=== PATIENT | female | born 1975 | race Caucasian/White ===

== ENCOUNTER 2023-08-03 09:09 | Observation (INO) ==
--- NOTE | 2023-08-03 09:22 | DR.GENAD ---
HPI Time Seen Time Seen by Provider: 08/03/23 09:21 PCP Primary Care Physician: TIA De La Cruz Complaint/Symptoms Chief Complaint Doctors Comments: 47-year-old female presents for evaluation. Started illness yesterday AM. Having frequent nausea, vomiting and diarrhea. Developed cramping of her legs last p.m. denies any known fevers or chills. Is feeling weak in general. Somewhat lightheaded with standing. Nothing set off the abdomen she knows about. Has been running low-grade temperature has not been around any other known ill individuals. Having some abdominal cramping. Chief Complaint:: Pt c/o sudden onset of nausea, vomiting and diarrhea that started yesterday morning and has continued throughout the night last night and this morning. Pt denies any fever. Pt c/o constant cramping pain in bilateral lower extremities. COVID-19 Coronavirus risk:travel/contact w/high risk person: No Has patient experienced Coronavirus symptoms: No Nurses notes reviewed Nurses Notes Review: Yes Source History Provided: Patient Mode of Arrival Mode of Arrival: Ambulatory Timing Onset of Chief Complaint: 08/02/23 PMH PMH Past Medical History: Yes Past Medical History: Dyslipidemia and GERD Past Medical History Comment: MVP Past Surgical History: Yes Surgical History: Abdominal Surgery and Hysterectomy Past Surgical History Comment: all of large intestines removed and most of small intestines removed Family History History of Family Medical Conditions: Yes Family Medical History: Cancer Social History Does patient currently use any type of tobacco product: Yes Have you used tobacco products in the last 12 months: Yes Type of Tobacco Use: Cigarettes Does any household member use tobacco: No Alcohol Use: None Do you use any recreational Drugs:: No Lives With: Family Lives Where: Home Travel Risk Coronavirus risk:travel/contact w/high risk person: No Has patient experienced Coronavirus symptoms: No Infectious screening In the last 2 months have you had wt loss of >10#?: NO Have you had fever, night sweats or hemotysis?: No Have you traveled outside the country in the last 6 months?: No Isolation: Standard ROS Review of Systems Constitutional: Weakness Eyes: No Symptoms Reported ENTM: No Symptoms Reported Respiratoy: No Symptoms Reported Cardiovascular: No Symptoms Reported Gastrointestinal/Abdominal: See HPI Genitourinary: No Symptoms Reported Neurological: Weakness Musculoskeletal: Leg Integumentary: No Symptoms Reported All Other Systems: Reviewed and Negative PE Vital Signs Vitals: Vital Signs Temperature 99.0 F Pulse Rate 85 Pulse Rate 88 Pulse Rate 91 Pulse Rate 92 Pulse Rate 93 Pulse Rate 92 Pulse Rate 104 Pulse Rate 112 Pulse Rate 96 Pulse Rate 97 Pulse Rate 101 Pulse Rate 140 Respiratory Rate 20 Respiratory Rate 23 Respiratory Rate 19 Respiratory Rate 20 Respiratory Rate 18 Respiratory Rate 20 Respiratory Rate 22 Blood Pressure 117/74 Blood Pressure 109/74 Blood Pressure 128/73 Blood Pressure 107/65 Blood Pressure 109/72 Blood Pressure 93/71 O2 Sat by Pulse Oximetry 100 O2 Sat by Pulse Oximetry 100 O2 Sat by Pulse Oximetry 100 O2 Sat by Pulse Oximetry 100 O2 Sat by Pulse Oximetry 100 O2 Sat by Pulse Oximetry 100 O2 Sat by Pulse Oximetry 100 O2 Sat by Pulse Oximetry 100 O2 Sat by Pulse Oximetry 99 O2 Sat by Pulse Oximetry 100 O2 Sat by Pulse Oximetry 99 O2 Sat by Pulse Oximetry 98 General General Appearance: Alert and In No Apparent Distress Eyes Eye exam: PERRL and EOMI ENT ENT Exam: Mucous Membranes Dry Neck Neck Exam: Normal Inspection Respiratory Respiratory Exam: Normal Lung Sounds Bilat; negative Accessory Muscle Use or Respiratory Distress Cardiovascular Cardiovascular Exam: Regular Rate, Normal Rhythm, Tachycardia and Normal Heart Sounds Abdominal Exam Abdominal Exam: Normal Bowel Sounds and Soft; negative Tenderness, Guarding or Rebound Extremities Extremities Exam: Normal Inspection Neurologic Neurological Exam: Alert, Oriented X3 and CN II-XII Intact; negative Motor Sensory Deficit Skin Skin Exam: Warm and Dry COURSE Treatment Treatment: 47 y/o female with N/V/abd pain. W/u initiated. Patient given IV fluids, IV analgesia. Labs show the patient's potassium be low at 2.8. She has elevated BUN and creatinine, consistent with acute nontraumatic renal injury CT abdomen pelvis obtained, multiple air-fluid levels with distention of the small bowel concerning for partial small bowel obstruction versus enteritis. Recommended admission. Discussed with Dr. Horton, on-call. Accepts the admission. Recommends NG tube. Consult with surgery, Dr. Sanders. NG tube inserted to low intermittent suction. Will be admitted to the floor. ROR Labs Reviewed Laboratory Results Reviewed?: Yes 08/03/23 09:30 08/03/23 09:30 Laboratory: WBC 10.5 X10^3/uL (3.6-10.0) H 08/03/23 09:30 RBC 4.69 X10^6/uL (3.5-5.4) 08/03/23 09:30 Hgb 15.2 g/dL (12.0-16.0) 08/03/23 09:30 Hct 44.3 % (36.0-47.0) 08/03/23 09:30 MCV 94.4 fL (80.0-100.0) 08/03/23 09:30 MCH 32.4 pg (27.0-34.0) 08/03/23 09: MCHC 34.3 g/dL (33.0-35.0) 08/03/23 09:30 RDW 13.5 % (11.6-16.5) 08/03/23 09:30 Plt Count 536 X10^3/uL (150.0-450.0) H 08/03/23 09:30 MPV 7.5 fL (7.4-11.0) 08/03/23 09:30 Neut % (Auto) 71.2 % (42.0-75.0) 08/03/23 09:30 Lymph % (Auto) 19.1 % (21.0-51.0) L 08/03/23 09:30 Mcdonald % (Auto) 7.5 % (0.0-13.0) 08/03/23 09:30 Eos % (Auto) 2.0 % (0.9-2.9) 08/03/23 09:30 Baso % (Auto) 0.2 % (0.2-1.0) 08/03/23 09:30 Neut # (Auto) 7.5 x10^3/uL (2.2-4.8) H 08/03/23 09:30 Lymph # (Auto) 2.0 X10^3/uL (1.3-2.9) 08/03/23 09:30 Mcdonald # (Auto) 0.8 x10^3/uL (0.3-0.8) 08/03/23 09:30 Eos # (Auto) 0.2 x10^3/uL (0.0-0.2) 08/03/23 09:30 Baso # (Auto) 0.0 X10^3/uL (0.0-0.1) 08/03/23 09:30 Absolute Nucleated RBC 0.1 /100WBC 08/03/23 09:30 Sodium 138 mmol/L (136-145) 08/03/23 09:30 Corrected Sodium 138 mmol/L (136-145) 08/03/23 09:30 Potassium 2.8 mmol/L (3.5-5.1) L* 08/03/23 09:30 Chloride 100 mmol/L (98-107) 08/03/23 09:30 Carbon Dioxide 22.2 mmol/L (21-32) 08/03/23 09:30 BUN 26 mg/dL (7-18) H 08/03/23 09:30 Creatinine 2.74 mg/dL (0.55-1.02) H 08/03/23 09:30 Est GFR (MDRD) Af Amer 24 (>60) L 08/03/23 09:30 Est GFR (MDRD) Non-Af 20 (>60) L 08/03/23 09:30 Glucose 119 mg/dL (65-99) H 08/03/23 09:30 Lactic Acid 0.9 mmol/L (0.4-2.0) 08/03/23 09:40 Calcium 9.9 mg/dL (8.5-10.1) 08/03/23 09:30 Corrected Calcium TNP 08/03/23 09:30 Total Bilirubin 0.40 mg/dL (0.2-1.0) 08/03/23 09:30 AST 58 Units/L (15-37) H 08/03/23 09:30 ALT 112 Units/L (12-78) H 08/03/23 09:30 Alkaline Phosphatase 44 Units/L (46-116) L 08/03/23 09:30 Total Protein 9.2 g/dL (6.4-8.2) H 08/03/23 09:30 Albumin 5.1 g/dL (3.4-5.0) H 08/03/23 09:30 Globulin 4.1 g/dL (2.5-4.5) 08/03/23 09:30 Albumin/Globulin Ratio 1.2 Ratio (1.1-2.1) 08/03/23 09:30 Lipase 21 Units/L (16-77) 08/03/23 09:30 Specimen Type Clean catch urine 08/03/23 10:55 Urine Color Dark yellow (YELLOW) 08/03/23 10:55 Urine Appearance Slightly hazy (CLEAR) 08/03/23 10:55 Urine pH 5.0 (5.0 - 8.0) 08/03/23 10:55 Ur Specific [place] 1.030 (1.000-1.030) 08/03/23 10:55 Urine Protein 3+ (NEGATIVE) 08/03/23 10:55 Urine Glucose (UA) Negative (NEGATIVE) 08/03/23 10:55 Urine Ketones 1+ (NEGATIVE) 08/03/23 10:55 Urine Blood 1+ (NEGATIVE) 08/03/23 10:55 Urine Nitrite Negative (NEGATIVE) 08/03/23 10:55 Urine Bilirubin 2+ (NEGATIVE) 08/03/23 10:55 Urine Urobilinogen 1+ (NORMAL) 08/03/23 10:55 Ur Leukocyte Esterase 1+ (NEGATIVE) 08/03/23 10:55 Urine RBC 0-2 /HPF (0-3) 08/03/23 10:55 Urine WBC 3-5 /HPF (0-5) 08/03/23 10:55 Ur Squamous Epith Cells Many /HPF (NEGATIVE) 08/03/23 10:55 Amorphous Sediment 3+ /HPF (NEGATIVE) 08/03/23 10:55 Urine Bacteria Trace /HPF (NEGATIVE) 08/03/23 10:55 Ur Culture Indicated? No/not indicated 08/03/23 10:55 XRAY XRAY Interpreted by: Radiologist X-ray Results: EXAM: ABDOMEN/PELVIS W/O CON HISTORY: abd pain, vomiting; COMPARISON: None. TECHNIQUE: Multiple axial images of the abdomen and pelvis were obtained from the lung bases to the pubic symphysis without the administration of IV contrast. Dose reduction techniques including Automated Exposure Control (AEC) and adjustment of mA and kV were utilized. FINDINGS: Limitations: Lack of IV contrast limits evaluation. Incomplete sagittal sequence. Minor subsegmental atelectasis in the right middle lobe of the lung. Heart is normal in size. Small amount of pericardial fluid. The liver, gallbladder, spleen, pancreas, adrenal glands, and kidneys have a benign noncontrast appearance. The urinary bladder appears benign. Status post hysterectomy. D iarrheal state of the colon with air stool level in the sigmoid colon image 75 series 3. Status post partial colectomy with right lower quadrant ileocolic anastomosis image 61 series 3. There is cluster of borderline to mildly enlarged lymph nodes in the right lower quadrant adjacent to the anastomosis. For example, on image 56 series 3 a lymph node measures 1 cm short axis. There are a few borderline to mildly dilated loops of small bowel in the left hemiabdomen. For example on image 62 series 3 a loop of small bowel measures about 3 cm in thickness. The appendix is not visualized and likely surgically absent. Moderately atherosclerotic normal caliber abdominal aorta. No free air or ascites. No acute osseous abnormality. IMPRESSION: Borderline to mildly dilated loops of small bowel in the left hemiabdomen may represent enteritis or low-grade obstruction. Partial colectomy. Diarrheal state of the remaining colon. Cluster of borderline to mildly enlarged lymph nodes in the right lower quadrant adjacent in the anastomosis. Differential includes reactive adenopathy, metas tasis, or primary lymphoproliferative disease. Recommend 3 month follow-up to document stability or resolution in the absence of known malignancy for which PET-CT or biopsy may be warranted. Incomplete sagittal sequence. An addendum can be made if repeat sequence is submitted. THIS IS AN ELECTRONICALLY VERIFIED FINAL REPORT 08/03/2023 11:03 AM - Electronically signed by Kwaku Woodard MD Opioid Opioid Risk Tool Age ([place] box if 16-45): Yes History of Preadolescent Sexual Abuse: No Total: 1 Total Score Risk Category: Low Risk Copyright: Gunnar COLBY predicting aberrant behaviors Discharge Plan Diagnosis Discharge Problem: Partial small bowel obstruction, Acute kidney injury (nontraumatic) Discharge Plan Patient Disposition: ADMITTED INPATIENT Condition: Stable Orders to Discharge Patient Discharge Orders: Transfer (Routine); Ordered 08/03/23 Ordered By: Riki Green
[2023-08-03] MEDS ORDERED: NS 1,000 ML IV 1,000 ML IV ONE ×2 (09:31→10:57)
[2023-08-03] MEDS ORDERED: ZOFRAN INJ 4 MG VIAL IVP ONE ×2 (09:32→12:05)
[2023-08-03] MEDS ORDERED: TORADOL 30 MG VIAL IVP ONE (09:32)
[2023-08-03] MEDS ORDERED: ZOFRAN INJ 4 MG VIAL ONE ×2 (09:34→12:08)
[2023-08-03] MEDS ORDERED: TORADOL 30 MG VIAL ONE (09:34)
[2023-08-03] MEDS ORDERED: NS 1,000 ML IV 1,000 ML ONE ×2 (09:35→10:58)
[2023-08-03 10:12] LABS: BASOPHILS % (AUTO) 0.2 % (0.2-1.0); EOSINOPHILS # (AUTO) 0.2 x10^3/uL (0.0-0.2); HEMATOCRIT 44.3 % (36.0-47.0); HEMOGLOBIN 15.2 g/dL (12.0-16.0); LYMPHOCYTES % (AUTO) 19.1 % (21.0-51.0); MEAN CORPUSCULAR HEMOGLOBIN 32.4 pg (27.0-34.0); MEAN CORPUSCULAR HGB CONC 34.3 g/dL (33.0-35.0); MEAN CORPUSCULAR VOLUME 94.4 fL (80.0-100.0); MEAN PLATELET VOLUME 7.5 fL (7.4-11.0); MONOCYTES # (AUTO) 0.8 x10^3/uL (0.3-0.8); MONOCYTES % (AUTO) 7.5 % (0.0-13.0); NEUTROPHILS # (AUTO) 7.5 x10^3/uL (2.2-4.8); NEUTROPHILS % (AUTO) 71.2 % (42.0-75.0); PLATELET COUNT 536 X10^3/uL (150.0-450.0); RED BLOOD COUNT 4.69 X10^6/uL (3.5-5.4); RED CELL DISTRIBUTION WIDTH 13.5 % (11.6-16.5); WHITE BLOOD COUNT 10.5 X10^3/uL (3.6-10.0)
[2023-08-03 10:26] LABS: ALANINE AMINOTRANSFERASE 112 Units/L (12-78); ALBUMIN 5.1 g/dL (3.4-5.0); ALKALINE PHOSPHATASE 44 Units/L (46-116); ASPARTATE AMINO TRANSFERASE 58 Units/L (15-37); BLOOD UREA NITROGEN 26 mg/dL (7-18); CALCIUM 9.9 mg/dL (8.5-10.1); CARBON DIOXIDE 22.2 mmol/L (21-32); CHLORIDE 100 mmol/L (98-107); COR NA(FOR HYPERGLY) 138 mmol/L (136-145); CREATININE 2.74 mg/dL (0.55-1.02); GLUCOSE 119 mg/dL (65-99); LIPASE 21 Units/L (16-77); SODIUM 138 mmol/L (136-145); TOTAL PROTEIN 9.2 g/dL (6.4-8.2); eGFR NON BLACK RACES 20 (>60)
[2023-08-03 10:28] LABS: POTASSIUM 2.8 mmol/L (3.5-5.1)
[2023-08-03 11:04] LABS: BILIRUBIN,URINE 2+ (NEGATIVE); BLOOD/HEMOGLOBIN,URINE 1+ (NEGATIVE); GLUCOSE, URINE NEGATIVE (NEGATIVE); KETONES,URINE 1+ (NEGATIVE); LEUKOCYTE ESTERASE ,URINE 1+ (NEGATIVE); NITRITES,URINE NEGATIVE (NEGATIVE); PROTEIN,URINE 3+ (NEGATIVE); UROBILINOGEN,URINE 1+ (NORMAL)
--- NOTE | 2023-08-03 11:06 | CT ---
EXAM:ABDOMEN/PELVIS W/O CONHISTORY:abd pain, vomiting;COMPARISON:None.TECHNIQUE:Multi ple axial images of the abdomen and pelvis were obtained from the lung bases to the pubic symphysis without the administration of IV contrast. Dose reduction techniques including Automated Exposure Control (AEC) and adjustment of mA and kV were utilized.FINDINGS:Limitations: Lack of IV contrast limits evaluation. Incomplete sagittal sequence.Minor subsegmental atelectasis in the right middle lobe of the lung. Heart is normal in size. Small amount of pericardial fluid. The liver, gallbladder, spleen, pancreas, adrenal glands, and kidneys have a benign noncontrast appearance. The urinary bladder appears benign. Status post hysterectomy. Diarrheal state of the colon with air stool level in the sigmoid colon image 75 series 3. Status post partial colectomy with right lower quadrant ileocolic anastomosis image 61 series 3. There is cluster of borderline to mildly enlarged lymph nodes in the right lower quadrant adjacent to the anastomosis. For example, on image 56 series 3 a lymph node measures 1 cm short axis. There are a few borderline to mildly dilated loops of small bowel in the left hemiabdomen. For example on image 62 series 3 a loop of small bowel measures about 3 cm in thickness. The appendix is not visualized and likely surgically absent. Moderately atherosclerotic normal caliber abdominal aorta. No free air or ascites. No acute osseous abnormality.IMPRESSION:Borderline to mildly dilated loops of small bowel in the left hemiabdomen may represent enteritis or low-grade obstruction.Partial colectomy. Diarrheal state of the remaining colon.Cluster of borderline to mildly enlarged lymph nodes in the right lower quadrant adjacent in the anastomosis. Differential includes reactive adenopathy, metastasis, or primary lymphoproliferative disease. Recommend 3 month follow-up to document stability or resolution in the absence of known malignancy for which PET-CT or biopsy may be warranted.Incomplete sagittal sequence. An addendum can be made if repeat sequence is submitted.THIS IS AN ELECTRONICALLY VERIFIED FINAL REPORT08/03/2023 11:03 AM - Electronically signed by Kwaku Woodard MD
[2023-08-03 11:08] LABS: APPEARANCE,URINE SLIGHTLY HAZY (CLEAR); COLOR,URINE DARK YELLOW (YELLOW)
[2023-08-03 11:11] LABS: RBC,URINE 0-2 /HPF (0-3)
[2023-08-03 11:12] LABS: BACTERIA,URINE TRACE /HPF (NEGATIVE); SQUAMOUS EPITHELIAL CELL,UR MANY /HPF (NEGATIVE)
[2023-08-03] MEDS ORDERED: MORPHINE SULFATE INJ 4 MG IVP ONE (12:05)
[2023-08-03] MEDS ORDERED: MORPHINE SULFATE INJ 4 MG IVP PRN (12:08)
[2023-08-03] MEDS ORDERED: ZOFRAN INJ 4 MG VIAL IVP PRN (12:08)
[2023-08-03] MEDS ORDERED: MORPHINE SULFATE INJ 4 MG ONE (12:08)
[2023-08-03] MEDS ORDERED: CONSULT PHARMACY - POTASSIUM & MAGNESIUM XX SCH ×2 (13:30→19:00)
[2023-08-03] MEDS ORDERED: PROTONIX INJ 40 MG VIAL IVP SCH (14:00)
[2023-08-03] MEDS: D5 1/2 NS + KCL 20 MEQ/L 1,000 ML IV SCH ×2 (14:07→20:49)
[2023-08-03] MEDS: FLAGYL IV PREMIX 500 MG BAG 500 MG/100 ML BAG IV SCH ×2 (14:07→20:49)
[2023-08-03 14:56] VITALS: BMI 25.4
--- NOTE | 2023-08-03 16:16 | RAD ---
EXAM:KUBHISTORY:NG TUBE PLACEMENT;COMPARISON:CT evaluation performed same dayTECHNIQUE:Supine radiograph of the abdomenFINDINGS:A nasogastric tube is curled within the proximal stomach. The tip of the tube lies along the greater curvature of the gastric fundus. The side port is also seen within the upper stomach. There are persistent, gas-filled, dilated small bowel loops within the central abdomen and right abdomen. The lung bases are predominantly clear. No secondary findings of free air. No suspicious calcification forms. Surgical clips and bowel suture material are identified within the right lower quadrant and left upper quadrant respectivelyIMPRESSION:Nasogastric tube is curled within the proximal stomach.Persistent gaseous distention of small-bowel loops within the central abdomen and right lower quadrant and postoperative changes suggesting partial bowel resection. Differential considerations may include a adynamic segmental ileus, gastroenteritis, or partial bowel obstruction. Consider follow-up small-bowel follow-through with water-soluble contrast to evaluate small bowel transit.THIS IS AN ELECTRONICALLY VERIFIED FINAL REPORT08/03/2023 4:13 PM - Electronically signed by Ludwig Garnica MD
[2023-08-03] MEDS ORDERED: K-DUR TAB 20 MEQ PO ONE (20:00)
[2023-08-03] MEDS: PROTONIX INJ 40 MG VIAL IVP SCH (20:27)
[2023-08-04] MEDS: D5 1/2 NS + KCL 20 MEQ/L 1,000 ML IV SCH ×2 (00:10→05:17)
[2023-08-04] MEDS: FLAGYL IV PREMIX 500 MG BAG 500 MG/100 ML BAG IV SCH (05:17)
[2023-08-04 06:53] LABS: BASOPHILS % (AUTO) 0.2 % (0.2-1.0); EOSINOPHILS # (AUTO) 0.2 x10^3/uL (0.0-0.2); EOSINOPHILS % (AUTO) 4.4 % (0.9-2.9); HEMATOCRIT 34.9 % (36.0-47.0); HEMOGLOBIN 11.8 g/dL (12.0-16.0); LYMPHOCYTES # (AUTO) 1.6 X10^3/uL (1.3-2.9); LYMPHOCYTES % (AUTO) 33.4 % (21.0-51.0); MEAN CORPUSCULAR HEMOGLOBIN 32.4 pg (27.0-34.0); MEAN CORPUSCULAR HGB CONC 33.8 g/dL (33.0-35.0); MEAN CORPUSCULAR VOLUME 95.6 fL (80.0-100.0); MEAN PLATELET VOLUME 7.7 fL (7.4-11.0); MONOCYTES # (AUTO) 0.5 x10^3/uL (0.3-0.8); MONOCYTES % (AUTO) 10.8 % (0.0-13.0); NEUTROPHILS # (AUTO) 2.5 x10^3/uL (2.2-4.8); NEUTROPHILS % (AUTO) 51.2 % (42.0-75.0); PLATELET COUNT 355 X10^3/uL (150.0-450.0); RED BLOOD COUNT 3.65 X10^6/uL (3.5-5.4); RED CELL DISTRIBUTION WIDTH 13.4 % (11.6-16.5); WHITE BLOOD COUNT 4.8 X10^3/uL (3.6-10.0)
[2023-08-04 07:17] LABS: ALANINE AMINOTRANSFERASE 68 Units/L (12-78); ALBUMIN 3.2 g/dL (3.4-5.0); ALKALINE PHOSPHATASE 34 Units/L (46-116); ASPARTATE AMINO TRANSFERASE 45 Units/L (15-37); BLOOD UREA NITROGEN 20 mg/dL (7-18); CALCIUM 8.5 mg/dL (8.5-10.1); CARBON DIOXIDE 22.7 mmol/L (21-32); CHLORIDE 109 mmol/L (98-107); COR CA(FOR HYPOALB) 9.1 mg/dL (8.5-10.1); CREATININE 0.92 mg/dL (0.55-1.02); GLUCOSE 100 mg/dL (65-99); MAGNESIUM 1.9 mg/dL (2.0-2.9); SODIUM 140 mmol/L (136-145); TOTAL PROTEIN 6.4 g/dL (6.4-8.2); eGFR NON BLACK RACES > 60 (>60)
[2023-08-04] MEDS ORDERED: CONSULT PHARMACY - POTASSIUM & MAGNESIUM XX SCH (08:00)
[2023-08-04] MEDS: MAG-OX TAB PO SCH ×2 (09:26→10:25)
[2023-08-04] MEDS: PROTONIX INJ 40 MG VIAL IVP SCH (09:26)
--- NOTE | 2023-08-04 09:39 | DR.PROGNOT ---
HOSPITAL PROGRESS NOTE Progress Note for Day of: Progress Note Date: 08/04/23 Chief Complaint Chief Complaint: feeling better today ..no abdominal pain . no vomiting.. still having loose BM. K 4.0. WBC 4.8 Mg 1.9 afebrile .. Past Medical Family Social History Allergies: Allergies No Known Drug Allergies Allergy (Verified 08/03/23 09:19) Vital Signs Vital Signs: Vital Signs Temperature 97.9 F Pulse Rate [Left Brachial] 84 Respiratory Rate 20 Blood Pressure [Right Arm] 99/59 O2 Sat by Pulse Oximetry 99 Physical Exam Oriented: Normal Eyes: Normal Ear: Normal Nose: Normal Throat: Normal Respiratory: Normal Cardiovascular: Normal GI:Auscultation: Normal GI:Palpation: Other (soft, flat , non tender ..BS+) Speech Pattern: Clear and Appropriate Laboratory and Diagnostics 08/04/23 05:18 08/04/23 05:18 Labs: 08/03/23 17:40 Stool Stool Culture - Preliminary 08/03/23 17:40 Stool - Final Laboratory WBC 4.8 X10^3/uL (3.6-10.0) 08/04/23 05:18 RBC 3.65 X10^6/uL (3.5-5.4) 08/04/23 05:18 Hgb 11.8 g/dL (12.0-16.0) L D 08/04/23 05:18 Hct 34.9 % (36.0-47.0) L 08/04/23 05:18 MCV 95.6 fL (80.0-100.0) 08/04/23 05:18 MCH 32.4 pg (27.0-34.0) 08/04/23 05:18 MCHC 33.8 g/dL (33.0-35.0) 08/04/23 05:18 RDW 13.4 % (11.6-16.5) 08/04/23 05:18 Plt Count 355 X10^3/uL (150.0-450.0) 08/04/23 05:18 MPV 7.7 fL (7.4-11.0) 08/04/23 05:18 Neut % (Auto) 51.2 % (42.0-75.0) 08/04/23 05:18 Lymph % (Auto) 33.4 % (21.0-51.0) 08/04/23 05:18 [place] % (Auto) 10.8 % (0.0-13.0) 08/04/23 05:18 Eos % (Auto) 4.4 % (0.9-2.9) H 08/04/23 05:18 Baso % (Auto) 0.2 % (0.2-1.0) 08/04/23 05:18 Neut # (Auto) 2.5 x10^3/uL (2.2-4.8) 08/04/23 05:18 Lymph # (Auto) 1.6 X10^3/uL (1.3-2.9) 08/04/23 05:18 [place] # (Auto) 0.5 x10^3/uL (0.3-0.8) 08/04/23 05:18 Eos # (Auto) 0.2 x10^3/uL (0.0-0.2) 08/04/23 05:18 Baso # (Auto) 0.0 X10^3/uL (0.0-0.1) 08/04/23 05:18 Absolute Nucleated RBC 0.3 /100WBC 08/04/23 05:18 Sodium 140 mmol/L (136-145) 08/04/23 05:18 Corrected Sodium TNP 08/04/23 05:18 Potassium 4.0 mmol/L (3.5-5.1) 08/04/23 05:18 Chloride 109 mmol/L (98-107) H 08/04/23 05:18 Carbon Dioxide 22.7 mmol/L (21-32) 08/04/23 05:18 BUN 20 mg/dL (7-18) H 08/04/23 05:18 Creatinine 0.92 mg/dL (0.55-1.02) 08/04/23 05:18 Est GFR (MDRD) Af Amer > 60 (>60) 08/04/23 05:18 Est GFR (MDRD) Non-Af > 60 (>60) 08/04/23 05:18 Glucose 100 mg/dL (65-99) H 08/04/23 05:18 POC Glucose (mg/dL) 109 mg/dL (65-99) H 08/04/23 05:10 Lactic Acid 0.9 mmol/L (0.4-2.0) 08/03/23 09:40 Calcium 8.5 mg/dL (8.5-10.1) 08/04/23 05:18 Corrected Calcium 9.1 mg/dL (8.5-10.1) 08/04/23 05:18 Magnesium 1.9 mg/dL (2.0-2.9) L 08/04/23 05:18 Total Bilirubin 0.30 mg/dL (0.2-1.0) 08/04/23 05:18 AST 45 Units/L (15-37) H 08/04/23 05:18 ALT 68 Units/L (12-78) 08/04/23 05:18 Alkaline Phosphatase 34 Units/L (46-116) L 08/04/23 05:18 Total Protein 6.4 g/dL (6.4-8.2) 08/04/23 05:18 Albumin 3.2 g/dL (3.4-5.0) L 08/04/23 05:18 Globulin 3.2 g/dL (2.5-4.5) 08/04/23 05:18 Albumin/Globulin Ratio 1.0 Ratio (1.1-2.1) L 08/04/23 05:18 Lipase 21 Units/L (16-77) 08/03/23 09:30 Specimen Type Clean catch urine 08/03/23 10:55 Urine Color Dark yellow (YELLOW) 08/03/23 10:55 Urine Appearance Slightly hazy (CLEAR) 08/03/23 10:55 Urine pH 5.0 (5.0 - 8.0) 08/03/23 10:55 Ur Specific [place] 1.030 (1.000-1.030) 08/03/23 10:55 Urine Protein 3+ (NEGATIVE) 08/03/23 10:55 Urine Glucose (UA) Negative (NEGATIVE) 08/03/23 10:55 Urine Ketones 1+ (NEGATIVE) 08/03/23 10:55 Urine Blood 1+ (NEGATIVE) 08/03/23 10:55 Urine Nitrite Negative (NEGATIVE) 08/03/23 10:55 Urine Bilirubin 2+ (NEGATIVE) 08/03/23 10:55 Urine Urobilinogen 1+ (NORMAL) 08/03/23 10:55 Ur Leukocyte Esterase 1+ (NEGATIVE) 08/03/23 10:55 Urine RBC 0-2 /HPF (0-3) 08/03/23 10:55 Urine WBC 3-5 /HPF (0-5) 08/03/23 10:55 Ur Squamous Epith Cells Many /HPF (NEGATIVE) 08/03/23 10:55 Amorphous Sediment 3+ /HPF (NEGATIVE) 08/03/23 10:55 Urine Bacteria Trace /HPF (NEGATIVE) 08/03/23 10:55 Ur Culture Indicated? No/not indicated 08/03/23 10:55 Stl C. diff Tox B Gene Negative (NEGATIVE) 08/03/23 17:40 Stl C. diff [id number] Presumptive negative (NEGATIVE) 08/03/23 17:40 Assessment and Plan 1: subsiding acute gastro enteritis and ileus . short gut syndrome . 2: hypokalemia , corrected . to advance diet . f/u in one week . needs future GI endoscopy. Problem Patient Problems: Patient Problems Partial small bowel obstruction (Acute) K56.600 Acute kidney injury (nontraumatic) (Acute) N17.9
[2023-08-04 10:18] VITALS: BP 106/72; PULSE 78; RESP 18; TEMP 98.2; O2SAT 98
--- NOTE | 2023-08-04 11:03 | RAD ---
EXAM:KUB x-ray one viewHISTORY:PARTIAL SBO [id number]:X-ray from previous dayFINDINGS:There is slight improvement of gaseous dilation of small and large bowel loops in the abdomen compared to prior study. Diminished gastric air is seen. Appearance is more suggestive of an ileus than bowel obstruction given the colonic air. Patient has had prior surgery in the right lower quadrant of the abdomen.IMPRESSION:Persistent mild dilated small and large bowel loops with air, but there is diminished distention of these loops compared to prior study. Ileus is more likely than bowel obstruction.THIS IS AN ELECTRONICALLY VERIFIED FINAL REPORT08/04/2023 11:00 AM - Electronically signed by Marco Borden MD
== END 2023-08-04 11:50 | disposition home or self-care (01) ==
LOC: ER 09:09 → INTOOBSV 12:36 → MED/SURG 12:36
PROVIDERS: ADMIT Obstetrics & Gynecology Obstetrics; ATTEND Obstetrics & Gynecology Obstetrics